=== PATIENT | female | born 1980 | race Caucasian/White ===

== ENCOUNTER 2018-12-29 10:09 | Emergency (ER) | payer OTHER ==
[~2018-12-29] VITALS: Ht 157.5 cm; Wt 62.6 kg
[~2018-12-29 10:09] MED LIST: NEURONTIN600 MG PO; [UNRECOGNIZED DRUG - OTHER]
[2018-12-29] MEDS ORDERED: PLAQUENIL 200 (10:27)
== END 2018-12-29 13:43 | disposition home or self-care (01) ==
LOC: ER 10:09
DX: J11.1 Influenza due to unidentified influenza virus with other respiratory manifestations (principal); J31.2 Chronic pharyngitis; R50.9 Fever, unspecified; M32.9 Systemic lupus erythematosus, unspecified

== ENCOUNTER 2019-04-11 18:50 | Emergency (ER) | payer OTHER ==
[~2019-04-11] VITALS: Ht 157.5 cm; Wt 58.1 kg
[~2019-04-11 18:50] MED LIST changes: +PLAQUENIL 200
[2019-04-11] MEDS ORDERED: AIRBORNE EFFER1 EACH PO (21:26)
[2019-04-11] MEDS ORDERED: OSEL75CA PO (21:26)
[2019-04-11] MEDS ORDERED: MUCINEX DM ER1 EAC1 PO (21:26)
== END 2019-04-11 21:42 | disposition home or self-care (01) ==
LOC: ER 18:50
DX: J11.1 Influenza due to unidentified influenza virus with other respiratory manifestations (principal)

== ENCOUNTER 2019-05-18 13:14 | Emergency (ER) | payer OTHER ==
[~2019-05-18] VITALS: Ht 157.5 cm; Wt 59.4 kg
[~2019-05-18 13:14] MED LIST changes: +AIRBORNE EFFER1 EACH PO; +MUCINEX DM ER1 EAC1 PO; +OSEL75CA PO
[2019-05-18] MEDS ORDERED: PLAQUINIL ×2 (14:33→14:34)
[2019-05-18] MEDS ORDERED: OMEPRAZOLE MAGN20 MG (14:34)
== END 2019-05-18 20:27 | disposition home or self-care (01) ==
LOC: ER 13:14
DX: J11.1 Influenza due to unidentified influenza virus with other respiratory manifestations (principal)

== ENCOUNTER 2023-11-28 11:28 | Outpatient (CLI) | payer OTHER ==
[~2023-11-28 11:28] MED LIST changes: +OMEPRAZOLE MAGN20 MG; +PLAQUINIL
== END 2023-11-28 11:37 | disposition home or self-care (01) ==
LOC: SONOGRAMA 11:28
DX: N20.0 Calculus of kidney (principal); R10.2 Pelvic and perineal pain

== ENCOUNTER 2024-02-06 08:38 | Outpatient (CLI) | payer OTHER | END 2024-02-06 08:49 | disposition home or self-care (01) | LOC: SONOGRAMA 08:38 | PROVIDERS: ATTEND Internal Medicine Gastroenterology | DX: R10.13 Epigastric pain (principal); R10.9 Unspecified abdominal pain ==

== ENCOUNTER 2024-10-02 09:55 | Outpatient (CLI) | payer OTHER | END 2024-10-02 10:05 | disposition home or self-care (01) | LOC: MAMO-SONO 09:55 | PROVIDERS: ATTEND Obstetrics & Gynecology Gynecology | DX: N60.11 Diffuse cystic mastopathy of right breast (principal); N60.12 Diffuse cystic mastopathy of left breast ==

== ENCOUNTER 2024-10-27 16:10 | Outpatient (CLI) | payer OTHER | END 2024-10-27 16:16 | disposition home or self-care (01) | LOC: RAD 16:10 | PROVIDERS: ATTEND Internal Medicine Cardiovascular Disease | DX: M12.9 Arthropathy, unspecified (principal) ==